=== PATIENT | female | born 1995 | race Caucasian/White ===

== ENCOUNTER → 2021-04-13 09:08 | Outpatient (BNVA) | payer OTHER, SELFPAY | PROVIDERS: PCP Internal Medicine; Visit Provider Advanced Practice Midwife | DX: Z32.01 Encounter for pregnancy test, result positive (principal) | CPT/HCPCS: 81025 ==

== ENCOUNTER → 2021-05-12 10:09 | Outpatient (BNVA) | payer OTHER, SELFPAY | PROVIDERS: Visit Provider Advanced Practice Midwife | DX: O21.9 Vomiting of pregnancy, unspecified (principal); O26.891 Other specified pregnancy related conditions, first trimester; Z86.39 Personal history of other endocrine, nutritional and metabolic disease; Z3A.09 9 weeks gestation of pregnancy | CPT/HCPCS: 99212 ==

== ENCOUNTER 2021-05-24 10:14 | Outpatient (REF) | payer OTHER, SELFPAY ==
[2021-05-24 12:28] LABS: Hemoglobin 13.5 g/dl (12.0-16.0); Mean Corpuscular HGB Conc 34.6 g/dl (31.0-35.0); Mean Corpuscular Hemoglobin 29.7 pg (27.0-33.0); Mean Corpuscular Volume 85.9 fL (80-98); Mean Platelet Volume 10.2 fL (9.4-12.3); Platelet Count 250 X10*3/uL (160-400); Red Blood Count 4.54 X10*6/uL (4.20-5.50); Red Cell Distribution Width 11.7 % (11.0-16.0); White Blood Count 7.1 X10*3/uL (4.8-10.8)
[2021-05-24 12:42] LABS: Glucose 1 Hour PP 50gm Dose 107 mg/dL (60-140)
[2021-05-24 13:02] LABS: Amphetamine Screen Urine Not Detected (Not Detect); Barbiturates, Urine Not Detected (Not Detect); Benzodiazepines Screen Urine Not Detected (Not Detect); Cannabinoid Screen Urine Not Detected (Not Detect); Cocaine Screen Urine Not Detected (Not Detect); Fentanyl, urine Not Detected (Not Detect); Opiate Screen Urine Not Detected (Not Detect); Phencyclidine Screen Urine Not Detected (Not Detect)
[2021-05-25 04:29] LABS: HBsAGNum1 0.21 S/CO (0.00-0.99); HIV AB/AG Nonreactive (Nonreactive); Hepatitis B Surface Antigen Negative (Negative); ~HepC Num1 0.08 S/CO (0.00-0.79); ~Hepatitis C Antibody Nonreactive (Nonreactive)
[2021-05-25 17:57] LABS: Rubella IgG Antibody 9.67 Index
[2021-05-27 08:25] LABS: Syphilis Screen Nonreactive (Nonreactive)
== END 2021-05-24 10:15 | disposition home or self-care (01) ==
LOC: HO.LAB 10:14
PROVIDERS: PCP Internal Medicine; Visit Provider Advanced Practice Midwife
DX: Z34.90 Encounter for supervision of normal pregnancy, unspecified, unspecified trimester (principal)
CPT/HCPCS: 80307; 85027; 86762; 86780; 86787; 86803; 86850; 86900; 86901; 87086; 87340; 87389

== ENCOUNTER 2021-05-31 09:12 | Outpatient (REF) | payer OTHER, SELFPAY ==
[2021-06-01 09:08] LABS: BV Int Neg Control Negative (Negative); BV Int Pos Control Positive (Positive)
[2021-06-01 09:31] LABS: CT PCR NOT DETECTED (Not Detect.); NG PCR NOT DETECTED (Not Detect.)
== END 2021-05-31 09:13 | disposition home or self-care (01) ==
LOC: HO.LAB 09:12
PROVIDERS: PCP Internal Medicine; Visit Provider Advanced Practice Midwife
DX: Z34.91 Encounter for supervision of normal pregnancy, unspecified, first trimester (principal); Z3A.12 12 weeks gestation of pregnancy; Z20.2 Contact with and (suspected) exposure to infections with a predominantly sexual mode of transmission
CPT/HCPCS: 87480; 87491; 87510; 87591; 87660; 88142; 99212

== ENCOUNTER 2021-06-02 08:33 | Outpatient (REF) | payer OTHER, SELFPAY ==
--- NOTE | ~2021-06-02 | US_ITS ---
EXAMINATION: OBSTETRICAL ULTRASOUND, FIRST TRIMESTER HISTORY: 25-year-old at 13.1 weeks of gestation NT screening COMPARISON: None TECHNIQUE: Real time transabdominal imaging with color and M-mode Doppler. FINDINGS: A single, live IUP CRL of 70.2 mm c/w 13.2wks is noted. Heart Rate: 142 beats per minute. Normal yolk sac seen. NT was 1.3.mm. NB Present The embryo appears sonographically wnl for this GA. Both maternal ovaries are seen and appear normal. GESTATIONAL AGE: 1. Established GA: 13.1 wks 2. GA from [facility]: 13.2 wks ESTIMATED DATE OF DELIVERY: 1. Established EUGENIO: 12/07/2021 2. EUGENIO from [facility]: 12/06/2021 US/US OB 1T nuc measure IMPRESSION: 1. A single live IUP 2. Size equals dates 3. NT of 1.3 mm MFM Consultation: I reviewed the ultrasound findings along with significance of NT measurement. The NT of less than 3mm is generally reassuring. However, the sensitivity for T21 detection is only 60%. I reviewed the availability of serum aneuploidy screening which includes cell-free DNA and placental protein based tests. I discussed the sensitivity, false-positive rate, and other limitations associated with each test. I also reviewed the availability of invasive diagnostic tests that are associated small but definite risk of miscarriage. We also reviewed the differences between screening tests and diagnostic tests. After our discussion, she opted for the First trimester screening that is based on cell-free DNA or non-invasive testing (NIPT). The result will be faxed to your office in approximately 7 days. A follow up at 18 weeks for survey has been scheduled. Thank you very much for this referral. Total time 20 minutes. The time spent was devoted to counseling the patient about the disease and diagnosis, coordinating care including reviewing her records, pertinent lab data and studies, as well as discussing diagnostic evaluation and workup, plan therapeutic interventions and future disposition of care. This includes any additional research needed to obtain further information in formulating the plan of care of this patient. This note was generated with a voice recognition program. Please excuse any errors which may have been overlooked during my review of this note. Sometimes these errors may affect the content or meaning of a given sentence.
== END 2021-06-02 08:34 | disposition home or self-care (01) ==
LOC: HO.US 08:33
PROVIDERS: PCP Internal Medicine; Visit Provider Advanced Practice Midwife
DX: Z36.82 Encounter for antenatal screening for nuchal translucency (principal)
CPT/HCPCS: 76813

== ENCOUNTER → 2021-06-28 10:36 | Outpatient (BNVA) | payer OTHER, SELFPAY | PROVIDERS: PCP Internal Medicine; Visit Provider Advanced Practice Midwife | DX: Z34.02 Encounter for supervision of normal first pregnancy, second trimester (principal); Z3A.16 16 weeks gestation of pregnancy | CPT/HCPCS: 81003; 99212 ==

== ENCOUNTER 2021-07-14 14:08 | Outpatient (REF) | payer OTHER, SELFPAY ==
--- NOTE | ~2021-07-14 | US_ITS ---
EXAMINATION: US OBSTETRICAL CLINICAL INFORMATION: A 25-year-old at 19.1 weeks of gestation Suspected anomaly COMPARISON: 06/02/2021 TECHNIQUE: Real-time transabdominal ultrasound was performed using C1-5 megahertz transducer. FINDINGS: A single, active, fetus is seen in breech presentation. The placenta is posterior without previa, and the amniotic fluid volume is wnl. MEASUREMENTS: 1. Biparietal Diameter: 4.3 cm; 19.1 wks 2. Occipital Frontal Diameter: 5.7 cm 3. Head Circumference: 16.1 cm; 19.0 wks 4. Abdominal Circumference: 14.8 cm; 20.1 wks 5. Femur Length: 3.1 cm; 19.4 wks 6. Humerus Length: 2.93 cm; 19.4 wks 7. Tibia Length: 2.7 cm; 19.4 wks 8. Ulna Length: 2.74 cm; 20.1 wks 9. Lateral ventricle: 0.68 cm 10. Cerebellum: 1.89 cm; 19.4 wks 11. Cisterna Magna: 0.37 cm 12. Nuchal Fold: 4.51 mm 13. Heart Rate: 139 beats per minute Rt ovary: normal Lt ovary: normal Cervical length 3.6 cm on T/A. GESTATIONAL AGE: 1. Established GA: 19.1 wks 2. GA from [facility]: 19.4 wks ESTIMATED DATE OF DELIVERY: 1. Established EUGENIO: 12/07/2021 2. EUGENIO from [facility]: 12/04/2021 ANATOMY: The views of four-chamber and ventricular septum of the heart , bilateral kidneys and spine were suboptimal due to position. The visualized anatomy includes but not limited to: 1. Cranium: Normal 2. Intracranial anatomy: cavum septum pellucidi, lateral ventricles, choroid plexus, cerebellum, posterior fossa, third and fourth ventricles. 3. face: orbits, lip/palate, profile, nasal bone 4. Heart: foramen ovale, pulmonary vein, left and right outflow tracts, three-vessel view, 3 vessel trachea view, aortic and ductal arches, situs.. 5. Diaphragm: Normal 6. Abdominal wall: Normal 7. Cord Insertion: Normal 8. Spine: Limited 9. Stomach: Normal size and shape 10. Right Kidney: Suboptimal 11. Left Kidney: Suboptimal 12. 3 vessel cord: Normal 13. Upper extremity: Open hands, fifth digit. 14. Lower extremity: Tibia, fibula, bilateral feet. 15. Bladder: Normal 16. Genitalia: Male, patient not aware US/US OB /maternal detail IMPRESSION: 1. Single, living, intrauterine with appropriate biometry. 2. Limited the survey due to position. No abnormalities were seen in visualized anatomy. RECOMMENDATIONS: 1. A follow-up has been scheduled in 2 weeks. Thank you for allowing me to participate in her care. This note was generated with a voice recognition program. Please excuse any errors which may have been overlooked during my review of this note. Sometimes these errors may affect the content or meaning of a given sentence.
== END 2021-07-14 14:09 | disposition home or self-care (01) ==
LOC: HO.US 14:08
PROVIDERS: PCP Internal Medicine; Visit Provider Advanced Practice Midwife
DX: Z34.92 Encounter for supervision of normal pregnancy, unspecified, second trimester (principal)
CPT/HCPCS: 76811

== ENCOUNTER → 2021-07-19 09:35 | Outpatient (BNVA) | payer OTHER, SELFPAY | PROVIDERS: PCP Internal Medicine; Visit Provider Advanced Practice Midwife | DX: Z34.02 Encounter for supervision of normal first pregnancy, second trimester (principal); Z3A.19 19 weeks gestation of pregnancy | CPT/HCPCS: 81003; 99212 ==

== ENCOUNTER 2021-07-28 13:06 | Outpatient (REF) | payer OTHER, SELFPAY ==
--- NOTE | ~2021-07-28 | US_ITS ---
EXAMINATION: OBSTETRICAL ULTRASOUND, Follow up HISTORY: A 25-year-old at the 21.1 weeks of gestation Incomplete survey Size date discrepancy COMPARISON: 07/14/2021 TECHNIQUE: Real time transabdominal imaging with color and M-mode Doppler. PRESENTATION: Vertex PLACENTA LOCATION: Posterior without previa AMNIOTIC FLUID: Normal MEASUREMENTS: 1. Biparietal Diameter: 5.0 cm; 21.1 wks 2. Head Circumference: 18.5 cm; 21.0 wks 3. Abdominal Circumference: 17.1 cm; 22.1 wks 4. Femur Length: 3.6 cm; 20.1 wks 5. Heart Rate: 136 beats per minute WEIGHT: Estimated weight is 436 grams (0 lbs 15 oz) -- 69 %. Normal views of lateral cerebral ventricle, profile, nose/lips, 4ch view, LVOT, RVOT, spine, kidneys. GESTATIONAL AGE: 1. Established GA: 21.1 wks 2. GA from [facility]: 21.3 wks ESTIMATED DATE OF DELIVERY: 1. Established EUGENIO: 12/07/2021 2. EUGENIO from [facility]: 12/05/2021 US/US OB follow up IMPRESSION: 1. A single fetus with appropriate interval growth. 2. Previously limited views of the anatomy were seen as listed above. No abnormalities were noted in visualized anatomy. 3. This completes the survey. I reviewed the limitations of ultrasound in diagnosing aneuploidy and other congenital abnormalities. Amniocentesis was again reviewed and she declined. She was informed that the baseline instance of congenital abnormalities and defects in the general population is approximately 3-5%. Not all these conditions are diagnosable in utero. RECOMMENDATIONS: 1. f/u PRN Thank you very much for this referral. This note was generated with a voice recognition program. Please excuse any errors which may have been overlooked during my review of this note. Sometimes these errors may affect the content or meaning of a given sentence.
== END 2021-07-28 13:07 | disposition home or self-care (01) ==
LOC: HO.US 13:06
PROVIDERS: PCP Internal Medicine; Visit Provider Advanced Practice Midwife
DX: O26.842 Uterine size-date discrepancy, second trimester (principal); Z3A.21 21 weeks gestation of pregnancy
CPT/HCPCS: 76816

== ENCOUNTER 2021-12-04 15:48 | Emergency (ER) | payer OTHER, MEDICAID, SELFPAY ==
[2021-12-04 17:09] VITALS: BP 131/89; PULSE 97; RESP 18; TEMP 36.7; O2SAT 98; BMI 17.2
[2021-12-04] MEDS: Lidocaine HCl 2 % MPF 5 ML VIAL SUBCUT ×2 (17:45)
--- NOTE | 2021-12-04 17:57 | ED_ITS ---
HPI - Wound/Laceration General Chief Complaint: Wound/Laceration Stated Complaint: laceration on hand/ 39 wks preg. Time Seen by Provider: 12/04/21 17:27 Source: patient Mode of arrival: ambulatory Limitations: no limitations History of Present Illness HPI narrative: This is a 25-year-old female presenting to the emergency department with a laceration to her about the palm of her left hand. Patient tells me she was cutting an avocado and was trying to get the pit out, accidentally stabbed herself with the point of the knife to her left palm. She clean area, applied Vaseline in a dressing to it. Patient is up to date on a tetanus shot. Was a clean knife, they were new out of the package. No numbness or tingling, fevers or chills. Onset (ago): hour(s) (3) Location: other (left palm ) Body four view annotation: 1. small [address]: home Patient tetanus UTD: Yes Context: accidental Associated symptoms: none Treatments prior to arrival: bandage Related Data Home Medications Medication Instructions Recorded Confirmed prenat.vits,po,uwz-[id number] 1 tab PO DAILY 07/19/21 07/19/21 Previous Rx's Medication Instructions Recorded aspirin 81 mg chewable tablet (St 162 mg PO DAILY #30 tab 06/28/21 Chucky Aspirin) Allergies Allergy/AdvReac Type Severity Reaction Status Date / Time No Known Allergies Allergy Verified 12/04/21 17:09 Review of Systems Review of Systems: Constitutional : No Fever, No Chills, Cardiovascular : No Chest Pain, No SOB Respiratory : No Dyspnea Gastrointestinal : No abdominal pain Musculoskeletal : No Joint Swelling Skin : No rash, positive skin laceration Neuro : No Weakness, No Numbness Psych : No SI/HI Yes all other systems are reviewed and are negative [facility] Past Medical History Attestation statement: The following information was validated with the patient. Source: old records reviewed and nursing notes reviewed Surgical History H/O wisdom tooth extraction History of tonsillectomy and adenoidectomy Family History Family History Father HTN (hypertension) Hx of diabetes mellitus Maternal Grandmother Diabetes HTN (hypertension) Maternal Grandfather Cardiac disease Social History Social History Household Members: Family Housing: Apartment Alcohol intake: never Patient Tobacco Use Status: Never used Tobacco Trauma History: none Special stephanie needs: No Agree to transfusion: Yes Advance Directives: No Advance Directives Information Provided: Yes Patient : Yes Gender identity: Female Physical Exam Vital Signs: Vital Signs: Last Vital Signs Temp 98.1 F 12/04/21 17:09 Pulse 97 12/04/21 17:09 Resp 18 12/04/21 17:09 BP 131/89 12/04/21 17:09 Pulse Ox 98 12/04/21 17:09 BMI result Body Mass Index 17.2 VSS Appearance: Alert.? Oriented X3.? No acute distress.? Head: Normocephalic, atraumatic, no step-offs or deformities Eyes: Pupils equal, round and reactive to light.? ENT: Pharynx normal.? Neck: Normal inspection.? Neck supple.? CVS: Normal heart rate and rhythm.? Pulses normal.? Respiratory: No respiratory distress.? Breath sounds normal.? Abdomen: Soft and nontender.? Skin: Skin warm and dry.? Normal skin color.? Normal skin turgor.? Extremities: No lower extremity edema.? No calf ttp. 5/5 strength to bilateral upper and lower extremities + 2 cm laceration to left palm. No signs of foreign body Neuro: Oriented X 3.? No motor deficit.? No sensory deficit. CN 2-12 intact Course Reevaluation(s) Reevaluation #1: The area was successfully sutured free of complications. A dressing was applied. Instructed on suture removal in 7-10 days. No need for antibiotics at this time patient is not a diabetic, she cut herself with a clean new knife. Advised on worrisome signs and symptoms outlined them on her discharge. Comfortable with discharge home Time: 18:01 MDM - Wound/Laceration MDM Narrative Medical decision making narrative: 1800 25 yo f presents with lac accidental to left palm PE- 2 cm linear laceration to left palm Plan- suture Medical Records Attestation: I reviewed the patient's medical records. Lab Data Attestation: I reviewed the patient's lab results. Procedures Laceration Laceration 1: Site: hand Side (If applicable): left Size (cm): 2 Description: linear Depth: simple, single layer Local Anesthetic: lidocaine 2% Amount of anesthesia used (mL): 5 Pre-repair: wound explored, irrigated extensively and deep structures intact Skin layer closed with: vicryl Size (cm): 4-0 Number of sutures: 2 Technique: simple, interrupted Critical Care Time Critical Care Time Critical Care Time: No Discharge Plan Discharge Clinical Impression: Laceration Patient Disposition: Home, Self-Care Instructions: Care For Your Stitches (ED), Laceration (ED) Additional Instructions: Take your medications as prescribed. Please get stitches removed in 7-10 days. Follow-up with your primary care provider this week. Return to the emergency department with new or worsening symptoms. Such as redness, swelling, bleeding from the site, discharge from the site, fevers or chills. In case of emergency call 911 Good luck to you! Prescriptions: No Action prenat.vits,po,gzx-rkyx-calch Tablet 1 tab PO DAILY 0RF aspirin [St Chucky Aspirin] 81 mg tablet,chewable 162 mg PO DAILY Qty: 30 6RF Rx Instructions: take daily until two weeks Referrals: Po,Kirk White MD [Primary Care Provider] - 2 days
== END 2021-12-04 18:08 | disposition home or self-care (01) ==
PROVIDERS: Emergency Provider Internal Medicine; PCP Internal Medicine
DX: S61.412A Laceration without foreign body of left hand, initial encounter (principal); M79.642 Pain in left hand; W26.0XXA Contact with knife, initial encounter; Y93.9 Activity, unspecified; Y92.000 Kitchen of unspecified non-institutional (private) residence as the place of occurrence of the external cause; Y99.9 Unspecified external cause status; Z79.899 Other long term (current) drug therapy
CPT/HCPCS: 12001; 99283; 99284

== ENCOUNTER 2022-01-30 09:12 | Emergency (ER) | payer OTHER, MEDICAID, SELFPAY ==
--- NOTE | ~2022-01-30 | US_ITS ---
EXAMINATION: US ABDOMEN LIMITED CLINICAL INFORMATION: Right upper quadrant pain and vomiting. COMPARISON: None TECHNIQUE: Real-time imaging of the right upper quadrant abdominal viscera. FINDINGS: PANCREAS: The head and body of the pancreas are normal. The tail is not well visualized due to bowel gas. LIVER: Normal. The liver is normal in size. The liver contour is normal. Parenchymal echogenicity is normal. No focal hepatic lesion. There is no intrahepatic biliary duct dilatation seen. GALLBLADDER: The gallbladder is normal in size. There is a phrygian cap. There are a small stone in the fundus of the gallbladder/phrygian cap. The gallbladder wall is normal in thickness. There is no pericholecystic fluid. COMMON BILE DUCT: Normal in caliber measuring 0.3 cm in diameter. RIGHT KIDNEY: Normal. No hydronephrosis. No renal calculi or focal parenchymal lesions. The kidney measures 12.2 cm in maximum dimension. FREE FLUID: None. US/US abdomen limited IMPRESSION: Small gallstones. Limited visualization of the tail of the pancreas.
[2022-01-30 09:26] VITALS: BP 110/56; PULSE 77; RESP 16; TEMP 37; O2SAT 100; BMI 37.8
--- NOTE | 2022-01-30 09:40 | ED.GENADULT ---
HPI - General Adult General Chief complaint: Back Pain/Injury Stated complaint: Abd pain/SOB Time Seen by Provider: 01/30/22 09:37 Source: patient Mode of arrival: ambulatory Limitations: no limitations History of Present Illness HPI narrative: 26-year-old female came in for evaluation right upper abdominal/flank pain. Symptoms started last night with right upper quadrant pain and epigastric pain with nausea, patient induce vomiting today to relieve her symptoms, no fever, no chills, no diarrhea, no bowel movement since yesterday. No sick contacts, no recent travel, patient ate at a fast food restaurant yesterday. Patient gave a month ago and was spontaneous vaginal delivery, no , no headache or blurry vision. No history of abdominal surgery. Related Data Home Medications Medication Instructions Recorded Confirmed prenat.vits,po,fua-[id number] 1 tab PO DAILY 07/19/21 07/19/21 Previous Rx's Medication Instructions Recorded aspirin 81 mg chewable tablet (St 162 mg PO DAILY #30 tab 06/28/21 Chucky Aspirin) Allergies Allergy/AdvReac Type Severity Reaction Status Date / Time No Known Allergies Allergy Verified 12/04/21 17:09 Review of Systems Review of Systems: All other systems are reviewed and are negative Constitutional: Reports as per HPI and Reports no additional constitutional complaints Eyes: Reports as per HPI and Reports no additional eye complaints Reports system reviewed and no additional complaints, except as documented Cardiovascular: Reports as per HPI and Reports no additional cardiovascular complaints Respiratory: Reports as per HPI and Reports no additional respiratory complaints Gastrointestinal: Reports as per HPI and Reports no additional gastrointestinal complaints Genitourinary: Reports no additional female genitourinary complaints Musculoskeletal: Reports no additional musculoskeletal complaints Skin/Breast: Reports system reviewed and no additional complaints, except as docu Psychiatric: Reports no additional psychiatric complaints Endocrine: Reports no additional endocrine complaints Hematologic/Lymphatic: Reports no additional hematologic/lymphatic complaints Allergic/Immunologic: Reports no additional allergic/immunologic complaints Reports system reviewed and no additional complaints, except as documented and Reports Abnormal speech present [facility] Past Medical History Surgical History H/O wisdom tooth extraction History of tonsillectomy and adenoidectomy Family History Family History Father HTN (hypertension) Hx of diabetes mellitus Maternal Grandmother Diabetes HTN (hypertension) Maternal Grandfather Cardiac disease Social History Social History Household Members: Family Housing: Apartment Alcohol intake: never Patient Tobacco Use Status: Never used Tobacco Smoked in Last 30 Days: No Trauma History: none Special stephanie needs: No Agree to transfusion: Yes Advance Directives: No Advance Directives Information Provided: No Gender identity: Female Physical Exam ED Vital Signs: Vital Signs - 24 hr 01/30/22 09:26 01/30/22 10:04 01/30/22 10:18 Temperature 98.6 F 98.3 F Pulse Rate 77 94 Respiratory Rate 16 16 16 Blood Pressure 110/56 L 124/64 Pulse Oximetry 100 98 01/30/22 11:46 Temperature 97.8 F Pulse Rate 74 Respiratory Rate 14 Blood Pressure 102/72 Pulse Oximetry BMI result Body Mass Index 37.8 Vital signs have been reviewed as appeared to be correct. Blood pressure normal. Heart rate normal. Respiration rate normal. Temperature normal. Oxygen saturation normal. Appearance: Alert. Oriented X3. No acute distress. Head: Normal external exam. Normocephalic. Atraumatic. No Araujo signs noted. No raccoon eyes noted Eyes: PERRLA. EOMI. Conjunctiva and sclera normal. Eyelids normal. ENT: TM's Normal. Pharynx normal. Uvula midline. Moist mucous membranes. No trismus noted. No drooling noted. No muffled voice noted. Neck: Normal inspection. Neck supple. FROM. No adenopathy. Thyroid Normal. No meningeal signs. No neck mass noted. CVS: Normal heart rate and rhythm. Heart sound normal. No murmurs noted. Pulses normal throughout. Respiratory: No respiratory distress. Painless inspiration. Breath sounds normal. No wheezes/rales/rhonchi noted. Chest nontender. No accessory muscle usage noted or decreased air movement noted. Abdomen: Soft, epigastric/right upper quadrant tenderness, no rebound tenderness, no guarding parent. Bowel sounds normal in all 4 quadrants. No distention noted. No organomegaly noted. No visible injury noted. Back: No CVA tenderness. Full range of motion noted. Skin: Skin warm and dry. Normal skin color. Normal skin turgor. No rashes/lesions/lacerations noted. Extremities: No lower extremity edema. Extremities exhibit normal range of motion. Extremities nontender. Neuro: Oriented X 3. Cranial nerve exam: II-XII are grossly intact No motor deficit. No sensory deficit. Reflexes normal. Course Course Course Narrative: Assessment and plan. 26-year-old female came in with upper abdominal pain after eating at a fast food restaurant, abdominal exam has improved, ultrasound revealing small gallbladder stones with no significant evidence for acute cholecystitis, patient is able to tolerate p.o. intake with no nausea or vomiting. Will discharge the patient home and follow up with PCP. Patient was instructed to start today clear diet and advance gradually as tolerated. Medical Decision Making Medical Records Medical records reviewed: Yes I reviewed the patient's medical records. Lab Data Lab results reviewed: Yes I reviewed the patient's lab results. Result diagrams: 01/30/22 09:59 01/30/22 09:59 Labs: Lab Results 01/30/22 01/30/22 01/30/22 Range/Units 09:59 09:59 10:01 WBC 10.0 (4.8-10.8) X10*3/uL RBC 5.09 (4.20-5.50) X10*6/uL Hgb 14.2 (12.0-16.0) g/dl Hct 42.2 (37.0-47.0) % MCV 82.9 (80.0-98.0) fL MCH 27.9 (27.0-33.0) pg MCHC 33.6 (31.0-35.0) g/dl RDW 11.9 (11.0-16.0) % Plt Count 267 (160-400) X10*3/uL MPV 9.3 L (9.4-12.3) fL Immature Gran % (Auto) 0.4 (0.0-0.4) % Neut % (Auto) 68.5 (45-73) % Lymph % (Auto) 24.5 (20-40) % [place] % (Auto) 4.8 (2-11) % Eos % (Auto) 1.5 (0-4) % Baso % (Auto) 0.3 (0-2) % Lymph # (Auto) 2.5 (1.2-4.9) X10*3/uL [place] # (Auto) 0.5 (0.1-1.2) X10*3/uL Eos # (Auto) 0.2 (0.0-0.4) X10*3/uL Baso # (Auto) 0.0 (0.0-0.2) X10*3/uL Abs Immat Gran (auto) 0.04 H (0.00-0.03) X10*3/uL Absolute Neuts (auto) 6.9 (2.0-8.3) x10*3/uL Absolute Nucleated RBC 0.000 (0.0-0.012) X10*3/uL Nucleated RBC % (auto) 0.0 (0.0-0.2) /100WBC Sodium 138 (135-145) mmol/L Potassium 3.8 (3.3-5.1) mmol/L Chloride 104 (96-108) mmol/L Carbon Dioxide 23 (22-29) mmol/L Anion Gap 15 (12-20) BUN 11 (9-16) mg/dL Creatinine 0.78 (0.5-1.4) mg/dL Estim Creat Clear Calc 122.2 Estimated GFR > 60 Random Glucose 125 H (60-115) mg/dL Calcium 9.6 (8.4-10.2) mg/dL Total Bilirubin 0.5 (0.0-1.0) mg/dL Direct Bilirubin 0.2 (0.0-0.5) mg/dL AST 78 H (5-31) U/L ALT 63 H (0-31) U/L Alkaline Phosphatase 121 H (39-117) U/L Total Protein 8.1 H (6.5-8.0) g/dL Albumin 4.6 (3.5-5.0) g/dL Lipase 25 (8-78) U/L Urine Color YELLOW Urine Appearance CLOUDY Urine pH 5.5 (5.0-8.0) Ur Specific Clark >= 1.030 H (1.005-1.025) Urine Protein NEG (NEG-TRACE) MG/DL Urine Glucose (UA) NEG (NEG) MG/DL Urine Ketones NEG (NEG) MG/DL Urine Blood 1+ H (NEG) Urine Nitrite NEG (NEG) Ur Leukocyte Esterase 2+ H (NEG) Urine RBC 1-4 (0) /HPF Urine WBC 15-29 H (0-4) /HPF Ur Squamous Epith Cells 4+ /LPF Urine Bacteria 3+ /LPF Urine Test (NEGATIVE) 01/30/22 Range/Units 10:01 WBC (4.8-10.8) X10*3/uL RBC (4.20-5.50) X10*6/uL Hgb (12.0-16.0) g/dl Hct (37.0-47.0) % MCV (80.0-98.0) fL MCH (27.0-33.0) pg MCHC (31.0-35.0) g/dl RDW (11.0-16.0) % Plt Count (160-400) X10*3/uL MPV (9.4-12.3) fL Immature Gran % (Auto) (0.0-0.4) % Neut % (Auto) (45-73) % Lymph % (Auto) (20-40) % [place] % (Auto) (2-11) % Eos % (Auto) (0-4) % Baso % (Auto) (0-2) % Lymph # (Auto) (1.2-4.9) X10*3/uL [place] # (Auto) (0.1-1.2) X10*3/uL Eos # (Auto) (0.0-0.4) X10*3/uL Baso # (Auto) (0.0-0.2) X10*3/uL Abs Immat Gran (auto) (0.00-0.03) X10*3/uL Absolute Neuts (auto) (2.0-8.3) x10*3/uL Absolute Nucleated RBC (0.0-0.012) X10*3/uL Nucleated RBC % (auto) (0.0-0.2) /100WBC Sodium (135-145) mmol/L Potassium (3.3-5.1) mmol/L Chloride (96-108) mmol/L Carbon Dioxide (22-29) mmol/L Anion Gap (12-20) BUN (9-16) mg/dL Creatinine (0.5-1.4) mg/dL Estim Creat Clear Calc Estimated GFR Random Glucose (60-115) mg/dL Calcium (8.4-10.2) mg/dL Total Bilirubin (0.0-1.0) mg/dL Direct Bilirubin (0.0-0.5) mg/dL AST (5-31) U/L ALT (0-31) U/L Alkaline Phosphatase (39-117) U/L Total Protein (6.5-8.0) g/dL Albumin (3.5-5.0) g/dL Lipase (8-78) U/L Urine Color Urine Appearance Urine pH (5.0-8.0) Ur Specific Clark (1.005-1.025) Urine Protein (NEG-TRACE) MG/DL Urine Glucose (UA) (NEG) MG/DL Urine Ketones (NEG) MG/DL Urine Blood (NEG) Urine Nitrite (NEG) Ur Leukocyte Esterase (NEG) Urine RBC (0) /HPF Urine WBC (0-4) /HPF Ur Squamous Epith Cells /LPF Urine Bacteria /LPF Urine Test NEGATIVE (NEGATIVE) Imaging Data Abdominal ultrasound: Attestation: I personally reviewed and interpreted this imaging study as follows: Radiologist's impression: Small gallstones. Limited visualization of the tail of the pancreas. Discharge Plan Discharge Clinical Impression: Food poisoning Patient Disposition: Home, Self-Care Instructions: Food Poisoning (ED) Prescriptions: No Action prenat.vits,po,[id number]-[id number] Tablet 1 tab PO DAILY 0RF aspirin [St Chucky Aspirin] 81 mg tablet,chewable 162 mg PO DAILY Qty: 30 6RF Rx Instructions: take daily until two weeks Referrals: Po,Kirk White MD [Primary Care Provider] -
[2022-01-30 10:02] LABS: MANUAL DIFF FLAG NO
[2022-01-30 10:04] VITALS: RESP 16
[2022-01-30] MEDS: ondansetron HCL 4 MG/2 ML VIAL IVPUSH (10:04)
[2022-01-30] MEDS: Morphine Sulfate 2 MG/ML CARTRIDGE 1 MG IVPUSH (10:04)
[2022-01-30] MEDS: 0.9 % Sodium Chloride 1,000 ML 999 ML IV (10:05)
[2022-01-30 10:07] LABS: Basophils Percent Auto 0.3 % (0-2); Eosinophils Absolute Auto 0.2 X10*3/uL (0.0-0.4); Eosinophils Percent Auto 1.5 % (0-4); Hematocrit 42.2 % (37.0-47.0); Hemoglobin 14.2 g/dl (12.0-16.0); Imm Gran Abs Auto 0.04 X10*3/uL (0.00-0.03); Imm Gran Pct Auto 0.4 % (0.0-0.4); Lymphocytes Absolute Auto 2.5 X10*3/uL (1.2-4.9); Lymphocytes Percent Auto 24.5 % (20-40); Mean Corpuscular HGB Conc 33.6 g/dl (31.0-35.0); Mean Corpuscular Hemoglobin 27.9 pg (27.0-33.0); Mean Corpuscular Volume 82.9 fL (80.0-98.0); Mean Platelet Volume 9.3 fL (9.4-12.3); Monocytes Absolute Auto 0.5 X10*3/uL (0.1-1.2); Monocytes Percent Auto 4.8 % (2-11); Neutrophils Absolute Auto 6.9 x10*3/uL (2.0-8.3); Neutrophils Percent Auto 68.5 % (45-73); Platelet Count 267 X10*3/uL (160-400); Red Blood Count 5.09 X10*6/uL (4.20-5.50); Red Cell Distribution Width 11.9 % (11.0-16.0)
[2022-01-30 10:18] VITALS: BP 124/64; PULSE 94; RESP 16; TEMP 36.8; O2SAT 98
[2022-01-30 10:21] LABS: Appearance Urine CLOUDY; Color Urine YELLOW; Glucose Urine UA NEG (NEG); Leukocyte Esterase Urine 2+ (NEG); Nitrite Urine NEG (NEG); PH 5.5 (5.0-8.0); Specific Gravity - Urine >= 1.030 (1.005-1.025); UACC Culture Trigger YES; Urine Blood 1+ (NEG); Urine Ketones NEG (NEG); Urine Protein NEG (NEG-TRACE)
[2022-01-30 10:21] LABS: Alanine Aminotransferase 63 U/L (0-31); Albumin Level 4.6 g/dL (3.5-5.0); Alkaline Phosphatase 121 U/L (39-117); Anion Gap 15 (12-20); Aspartate Amino Transferase 78 U/L (5-31); Bilirubin Direct 0.2 mg/dL (0.0-0.5); Bilirubin Total 0.5 mg/dL (0.0-1.0); Blood Urea Nitrogen 11 mg/dL (9-16); Calcium 9.6 mg/dL (8.4-10.2); Carbon Dioxide 23 mmol/L (22-29); Chloride 104 mmol/L (96-108); Creatinine Clr Calc Pharmacy 122.2; Estimated Glomerular Filt Rate > 60; Glucose Random 125 mg/dL (60-115); Lipase 25 U/L (8-78); Potassium 3.8 mmol/L (3.3-5.1); Sodium 138 mmol/L (135-145); Total Protein 8.1 g/dL (6.5-8.0)
[2022-01-30 10:23] LABS: Urine Pregnancy NEGATIVE (NEGATIVE)
[2022-01-30 10:24] LABS: UPreg QC Valid YES
--- NOTE | 2022-01-30 10:24 | PC.NURSE ---
Patient vomited small amount of bile colored vomitus-patient reports relief in b/l chest pain after vomiting from 07/23 to 03/23.
--- NOTE | 2022-01-30 11:18 | PC.NURSE ---
Patient resting comfortably with her eyes closed. Patient reports pain b/l chest is improving 3/10 at present, pt denies nausea/vomiting at present.
[2022-01-30 11:38] LABS: Bacteria Urine 3+ /LPF; Squamous Epithelial Cell Urine 4+ /LPF
[2022-01-30 11:46] VITALS: BP 102/72; PULSE 74; RESP 14; TEMP 36.6
[2022-01-30 14:57] VITALS: BP 120/74; PULSE 87
== END 2022-01-30 14:57 | disposition home or self-care (01) ==
PROVIDERS: Emergency Provider Emergency Medicine; PCP Internal Medicine
DX: R10.11 Right upper quadrant pain (principal); R11.2 Nausea with vomiting, unspecified; M54.50 Low back pain, unspecified; R06.02 Shortness of breath; Z79.899 Other long term (current) drug therapy
CPT/HCPCS: 36415; 76705; 80048; 80076; 81001; 81025; 83690; 85025; 87086; 96361; 96374; 96375; 99284; J2270; J2405

== ENCOUNTER 2024-01-08 13:56 | Outpatient (AMB) | payer MEDICAID, SELFPAY ==
--- NOTE | 2024-01-08 13:57 | AM.OFFWIN_ITS ---
Intake Vital Signs 01/08/24 14:00 Height 5 ft 4 in Weight 195 lb 6 oz BMI 33.5 BP 104/80 Blood Pressure Location Rt brachial Position Sitting Pulse 107 H Pulse Source Pulse Oximeter Temp 98.3 F Temp Source Oral Pulse Oximetry (%) 96 Oxygen Delivery Method Room Air Intake Visit Reasons: EP-sore throat and headache Intake Note: Pt presents to the office today for c/o sore throat and sinus pressure x5 days. Patient Tobacco Use Status: Never used Tobacco Allergies No Known Allergies Allergy (Verified 01/08/24 14:03) HPI HPI Comments History of Present Illness Details 28-year-old female presents today compla ining of a sore throat for the last 4 days increasing in intensity. She had a rapid strep today that was negative. She complains of myalgias and mild congestion PFSH Surgical History History of tonsillectomy and adenoidectomy H/O wisdom tooth extraction Family History Father HTN (hypertension) Hx of diabetes mellitus Maternal Grandmother Diabetes HTN (hypertension) Maternal Grandfather Cardiac disease Social History Household Members: Family Housing: Apartment Alcohol intake: never Patient Tobacco Use Status: Never used Tobacco Trauma History: none Special stephanie needs: No Agree to transfusion: Yes Gender identity: Female Female Reproductive History Menstrual Age of Menarche: 13 Review of Systems Const Reports body aches and Reports chills Eyes Reports no additional complaints ENT Reports Normal hearing present and Reports sore throat Card Reports no additional complaints Resp Reports cough GI Reports no additional complaints Neuro Reports Normal hearing present Physical Exam Vital Signs: Last Vital Signs Temp 98.3 F 01/08/24 14:00 Pulse 107 H 01/08/24 14:00 BP 104/80 01/08/24 14:00 Pulse Ox 96 01/08/24 14:00 Oxygen Delivery Method Room Air 01/08/24 14:00 BMI result Body Mass Index 33.5 HEENT Head: Yes normal to inspection, Yes normocephalic and Yes atraumatic Ears: hearing grossly normal bilaterally, external ears normal and TM's normal bilaterally General nose exam: Normal external nose present Face and sinus: Yes sinuses nontender Throat: Yes posterior oropharynx abnormal (Exudative pharyngitis) Resp Auscultation: clear to auscultation bilaterally Cardio Rate: regular rate Rhythm: regular rhythm Neuro Cranial nerves: Yes Normal hearing present Results AMB Rapid Strep AMB Rapid Strep Negative Last Edit by Camilla Person MA on 01/08/24 14:30 Results Reviewed Results Reviewed: Discussed the negative rapid strep but due to her exudative pharynx we will treat her. I am also going to send in a viral swab and if that is positive she will discontinue the antibiotics if negative take it for the next 10 days she also has 2 young children that we will see the shotblast operator in 2 days Assessment & Plan Assessment & Plan (1) Exudative pharyngitis: Code(s): J02.9 - Acute pharyngitis, unspecified Plan: See plan Plan She will take the amoxicillin until the return of the viral culture if negative continue the antibiotic if positive discontinue. Orders: Orders SARS-CoV2/FLU/RSV Today R09.89 - Other specified symptoms and signs involving the circulatory and respiratory systems AMB Rapid Strep Screen Today Z13.9 - Encounter for screening, unspecified Medications: New amoxicillin 875 mg PO BID 20 tabs 0RF Coding Level of Care Code Est Pt Level 3 (63275) Diagnoses Exudative pharyngitis J02.9
[2024-01-08 14:00] VITALS: BP 104/80; PULSE 107; TEMP 36.8; O2SAT 96; BMI 33.5
== END 2024-01-08 14:47 | disposition home or self-care (01) ==
PROVIDERS: PCP Internal Medicine; Visit Provider Physician Assistant Medical
DX: Z13.9 Encounter for screening, unspecified (principal); J02.9 Acute pharyngitis, unspecified
CPT/HCPCS: 87880; 99213

== ENCOUNTER 2024-01-08 14:59 | Outpatient (REF) | payer MEDICAID, SELFPAY ==
[2024-01-08 17:22] LABS: Influenza A PCR NEGATIVE (Negative); Influenza B PCR NEGATIVE (Negative); Resp Syncy Virus RNA Qual PCR NEGATIVE (Negative); SARS COV2 PCR INHOUSE NEGATIVE (Negative)
== END 2024-01-08 15:00 | disposition home or self-care (01) ==
LOC: HO.LAB 14:59
PROVIDERS: Visit Provider Physician Assistant Medical
DX: R09.89 Other specified symptoms and signs involving the circulatory and respiratory systems (principal)
CPT/HCPCS: 0241U